=== PATIENT | male | born 1955 | race Caucasian/White ===

== ENCOUNTER 2016-07-05 17:45 | Inpatient (IN) | payer BC ==
[~2016-07-05] VITALS: Ht 177.8 cm; Wt 124.0 kg
[~2016-07-05 17:45] MED LIST: ATENOLOL50 MG PO; ATIVAN0.5 MG PO; ATORVASTATIN CA10 MG PO; BUSPAR10 MG PO; CLARITIN10 M3 PO; COZAAR50 MG PO; CYMBALTA30 MG PO; DOXEPIN HCL10 MG PO; FENOFIBRATE160 M1 PO; FISH OIL300 MG PO; FLEXERIL10 MG PO; GELNIQUE 10%30 GM TD; LIDODERM 5% P1 PATCH TD; LIPITOR10 MG PO; LORAZEPAM0.5 MG PO; LOSARTAN POTASS50 MG PO; LUNESTA1 MG PO; LUNESTA3 MG PO; MONTELUKAST SOD10 MG PO; NAPROSYN500 MG PO; NASACORT AQ16.5 GM BOTH NARES; NICOTINE PATCH1 EAC2 TD; NUVIGIL150 MG PO; OXYCODONE HCL15 MG PO; OXYCONTIN60 MG PO; PERCOCET 5/31 TABLET PO; PRADAXA150 MG PO; PREDNISONE50 MG PO; PRILOSEC OTC20 MG PO; PRILOSEC20 MG PO; ROXICODONE15 MG PO; SENNA-DOCUSATE1 EAC1 PO; SINGULAIR10 MG PO; SPIRIVA1 INHALATI IH; URSODIOL500 MG PO; VALIUM5 MG PO; VIAGRA100 MG PO; VIAGRA50 MG PO; VITAMIN E400 UNIT PO; XANAX0.5 MG PO
[2016-07-05 18:55] LABS: HEMATOCRIT 15.1 % (38.0-50.0); MCH 33.6 PG (29.0-34.0); MCHC 31.8 G/DL (30.0-36.0); MCV 105.6 FL (86-99); MEAN PLAT.VOLUME 13.3 uM^3 (9.0-12.4); NRBC (%) 0.9 /100 WBC (0-0); PLATELET COUNT 53 K/uL (156-360); RBC DIS.WIDTH-CV 21.5 % (11.8-14.6); RBC DIS.WIDTH-SD 80.6 % (39-53); RED BLOOD COUNT 1.43 M/uL (4.00-5.50); WHITE BLOOD COUNT 2.3 K/uL (4.1-10.2)
[2016-07-05 19:10] LABS: TROP-I INTERPRETATION NEGATIVE; TROPONIN-I 0.01 ng/mL (0.0-0.30)
[2016-07-05 19:23] LABS: CHLORIDE 109 mEq/L (99-109); POTASSIUM 4.1 mEq/L (3.7-5.4); SODIUM 140 mEq/L (136-147)
[2016-07-05 19:25] LABS: GLUCOSE 108 mg/dL (70-99)
[2016-07-05 19:26] LABS: ANION GAP 10 MEQ/L (2-14)
[2016-07-05 19:29] LABS: GFR ESTIMATE (CALCULATED) 29 mL/min/; UREA NITROGEN (BUN) 33 mg/dL (9-23)
[2016-07-05 19:39] LABS: TOTAL BILIRUBIN 0.7 mg/dL (0.0-1.0)
[2016-07-05 19:40] LABS: ALKALINE PHOSPHATASE 41 IU/L (3-129)
[2016-07-05 19:43] LABS: DIRECT BILIRUBIN 0.5 mg/dL (0.0-0.3)
[2016-07-05 19:44] LABS: LIPASE 72 U/L (1.0-51.0)
[2016-07-05] MEDS ORDERED: COZAAR50 MG PO (20:13)
[2016-07-05] MEDS ORDERED: LANSOPRAZOLE30 MG PO (20:14)
[2016-07-05] MEDS ORDERED: ELIQUIS5 MG PO (20:16)
[2016-07-05] MEDS ORDERED: MOVANTIK25 MG PO (20:19)
[2016-07-05] MEDS ORDERED: OXAYDO7.5 MG PO (20:20)
[2016-07-05] MEDS ORDERED: FUROSEMIDE40 MG PO (20:21)
[2016-07-05] MEDS ORDERED: DIGITEK250 MC2 PO (20:22)
[2016-07-05] MEDS ORDERED: SPIRIVA RESPIMAT4 GM IH (20:27)
[2016-07-05] MEDS ORDERED: KRILL OIL 1,001 EACH PO (20:28)
[2016-07-05] MEDS ORDERED: ERGOCALCIF50000 UNIT PO (20:29)
[2016-07-05 21:13] VITALS: BP 115/48
[2016-07-05 21:28] VITALS: BP 106/46
[2016-07-05 22:10] VITALS: BP 110/47
[2016-07-06] VITALS (13 sets, daily range): BP systolic 105–134; BP diastolic 51–63
[2016-07-06 07:07] LABS: HEMATOCRIT 19.4 % (38.0-50.0); IMM.PLATELET FRACTION 27.2 (1-7); MCH 32.5 PG (29.0-34.0); MEAN PLAT.VOLUME 12.9 uM^3 (9.0-12.4); PLATELET COUNT 53 K/uL (156-360); RBC DIS.WIDTH-CV 21.8 % (11.8-14.6); RBC DIS.WIDTH-SD 76.1 % (39-53); WHITE BLOOD COUNT 2.4 K/uL (4.1-10.2)
[2016-07-06 07:11] LABS: TROP-I INTERPRETATION NEGATIVE; TROPONIN-I 0.02 ng/mL (0.0-0.30)
[2016-07-06 07:19] LABS: IRON 242 MCG/DL (35-150)
[2016-07-06 07:23] LABS: MCV 101.6 FL (86-99); RED BLOOD COUNT 1.91 M/uL (4.00-5.50)
[2016-07-06 07:58] LABS: FERRITIN 1161 NG/ML (22-322)
[2016-07-06 10:30] LABS: HEMATOCRIT 19.5 % (38.0-50.0); IMM.PLATELET FRACTION 25.5 (1-7); MCH 32.1 PG (29.0-34.0); MCHC 31.8 G/DL (30.0-36.0); MEAN PLAT.VOLUME 12.8 uM^3 (9.0-12.4); PLATELET COUNT 55 K/uL (156-360); RBC DIS.WIDTH-CV 21.7 % (11.8-14.6); RBC DIS.WIDTH-SD 76.2 % (39-53); RED BLOOD COUNT 1.93 M/uL (4.00-5.50); WHITE BLOOD COUNT 3.1 K/uL (4.1-10.2)
[2016-07-06 10:31] LABS: INTER. NORMALIZED RATIO 1.3; PROTHROMBIN TIME 13.4 (9.2-11.2); PTT 30.5 (25-32)
[2016-07-06 10:50] LABS: ABS NEUTROPHIL COUNT 2.4; ANISOCYTOSIS 1+; ATYPICAL LYMPHOCYTE 0.9 %; BAND NEUTROPHILS 4.6 % (0-8.0); BASOPHILS 1.8 %; EOSINOPHIL ABS CT 0; EOSINOPHILS 0.9 % (0-5.0); GIANT PLATELETS 1+; LYMPHOCYTES 16.4 % (15.0-45.0); MACROCYTES 1+; NUCLEATED RBC'S 1.8; PLAT.SUFFICIENCY DECREASED; POIKILOCYTOSIS 1+; SEG.NEUTROPHILS 73.6 % (46.0-76.0); TEAR DROP CELLS 1+
[2016-07-06 13:23] LABS: TROP-I INTERPRETATION NEGATIVE; TROPONIN-I 0.02 ng/mL (0.0-0.30)
[2016-07-06 20:33] LABS: HEMATOCRIT 21.6 % (38.0-50.0); MCH 31.9 PG (29.0-34.0); MCHC 31.9 G/DL (30.0-36.0); MEAN PLAT.VOLUME 13.6 uM^3 (9.0-12.4); NRBC (%) 0.8 /100 WBC (0-0); PLATELET COUNT 60 K/uL (156-360); RBC DIS.WIDTH-CV 20.6 % (11.8-14.6); RBC DIS.WIDTH-SD 71.7 % (39-53); RED BLOOD COUNT 2.16 M/uL (4.00-5.50); WHITE BLOOD COUNT 3.8 K/uL (4.1-10.2)
[2016-07-06 21:12] LABS: POINT-OF-CARE METER ID UU13113725
[2016-07-07] VITALS (9 sets, daily range): BP systolic 114–176; BP diastolic 53–73
[2016-07-07 00:05] LABS: POINT-OF-CARE METER ID UU13113725
[2016-07-07 05:55] LABS: POINT-OF-CARE METER ID UU13113725
[2016-07-07 07:50] LABS: HEMATOCRIT 20.9 % (38.0-50.0); MCH 32.4 PG (29.0-34.0); MCHC 32.1 G/DL (30.0-36.0); NRBC (%) 0.9 /100 WBC (0-0); PLATELET COUNT 51 K/uL (156-360); RBC DIS.WIDTH-CV 20.4 % (11.8-14.6); RBC DIS.WIDTH-SD 72.2 % (39-53); RED BLOOD COUNT 2.07 M/uL (4.00-5.50)
[2016-07-07 07:51] LABS: WHITE BLOOD COUNT 2.2 K/uL (4.1-10.2)
[2016-07-07 08:02] LABS: ALKALINE PHOSPHATASE 41 IU/L (3-129); ANION GAP 7 MEQ/L (2-14); CHLORIDE 106 MEQ/L (99-109); Estimated Average Glucose 108 mg/dL (70-123); GFR ESTIMATE (CALCULATED) 38 mL/min/; GLUCOSE 92 mg/dL (70-99); HEMOGLOBIN A1c (GLYCOHEMOGLOB) 5.4 % HGB (Below 5.7); POTASSIUM 3.8 MEQ/L (3.7-5.4); SAMPLE HEMOLYSIS CHECK 0; SAMPLE ICTERIC CHECK 0; SAMPLE LIPEMIA CHECK 0; SODIUM 141 MEQ/L (136-147); TOTAL BILIRUBIN 1.2 MG/DL (0.0-1.0); UREA NITROGEN (BUN) 22 mg/dL (9-23)
[2016-07-07 11:18] LABS: POINT-OF-CARE METER ID UU13113725
[2016-07-07 11:35] LABS: ABS NEUTROPHIL COUNT 1.4; ANISOCYTOSIS 1+; BURR CELLS 1+; EOSINOPHIL ABS CT 0; HYPOCHROMASIA 1+; MACROCYTES 1+; PLAT.SUFFICIENCY DECREASED
[2016-07-07 21:00] LABS: HEMATOCRIT 18.8 % (38.0-50.0); HEMATOLOGY COMMENT 1 SN; IMM.PLATELET FRACTION 21.1 (1-7); MCH 32.4 PG (29.0-34.0); MCHC 31.9 G/DL (30.0-36.0); MCV 101.6 FL (86-99); MEAN PLAT.VOLUME 13.3 uM^3 (9.0-12.4); PLAT.SUFFICIENCY DECREASED; PLATELET COUNT 59 K/uL (156-360); RBC DIS.WIDTH-CV 20.4 % (11.8-14.6); RBC DIS.WIDTH-SD 72.3 % (39-53); RED BLOOD COUNT 1.85 M/uL (4.00-5.50)
[2016-07-08] VITALS (11 sets, daily range): BP systolic 122–166; BP diastolic 63–83
[2016-07-08 06:16] LABS: HEMATOCRIT 23.6 % (38.0-50.0); MCH 31.8 PG (29.0-34.0); MCHC 32.2 G/DL (30.0-36.0); MCV 98.7 FL (86-99); NRBC (%) 1.8 /100 WBC (0-0); RBC DIS.WIDTH-SD 68.4 % (39-53); WHITE BLOOD COUNT 2.2 K/uL (4.1-10.2)
[2016-07-08 06:20] LABS: RED BLOOD COUNT 2.39 M/uL (4.00-5.50)
[2016-07-08 06:53] LABS: ANION GAP 9 MEQ/L (2-14); CHLORIDE 106 MEQ/L (99-109); GFR ESTIMATE (CALCULATED) 43 mL/min/; GLUCOSE 86 mg/dL (70-99); SAMPLE HEMOLYSIS CHECK 0; SAMPLE ICTERIC CHECK 0; SAMPLE LIPEMIA CHECK 0; SODIUM 141 MEQ/L (136-147); UREA NITROGEN (BUN) 20 mg/dL (9-23)
[2016-07-08 06:54] LABS: POTASSIUM 4.8 MEQ/L (3.7-5.4)
[2016-07-08 07:12] LABS: IMM.PLATELET FRACTION 19.6 (1-7); MEAN PLAT.VOLUME 11.9 uM^3 (9.0-12.4); PLATELET COUNT 48 K/uL (156-360)
[2016-07-08 07:14] LABS: PLAT.SUFFICIENCY VERY DECREASED
[2016-07-08 08:38] LABS: LACTATE DEHYDROGENASE 225 IU/L (20-246)
[2016-07-08 20:28] LABS: HEMATOCRIT 23.6 % (38.0-50.0); MCHC 32.6 G/DL (30.0-36.0); MCV 97.9 FL (86-99); NRBC (%) 1.2 /100 WBC (0-0); RBC DIS.WIDTH-CV 19.7 % (11.8-14.6); RBC DIS.WIDTH-SD 68.3 % (39-53); RED BLOOD COUNT 2.41 M/uL (4.00-5.50); WHITE BLOOD COUNT 2.5 K/uL (4.1-10.2)
[2016-07-08 22:21] LABS: IMM.PLATELET FRACTION 24.8 (1-7); PLAT.SUFFICIENCY VERY DECREASED; PLATELET COUNT 48 K/uL (156-360)
[2016-07-09 03:24] VITALS: BP 148/82; BP 183/86
[2016-07-09 06:42] VITALS: BP 143/65
[2016-07-09 08:13] LABS: HEMATOCRIT 22.4 % (38.0-50.0); MCH 31.7 PG (29.0-34.0); MCHC 32.1 G/DL (30.0-36.0); MCV 98.7 FL (86-99); NRBC (%) 1.5 /100 WBC (0-0); RBC DIS.WIDTH-CV 19.6 % (11.8-14.6); RED BLOOD COUNT 2.27 M/uL (4.00-5.50); WHITE BLOOD COUNT 2.1 K/uL (4.1-10.2)
[2016-07-09 08:50] LABS: ANION GAP 7 MEQ/L (2-14); CHLORIDE 106 MEQ/L (99-109); GFR ESTIMATE (CALCULATED) 50 mL/min/; GLUCOSE 83 mg/dL (70-99); SAMPLE HEMOLYSIS CHECK 0; SAMPLE ICTERIC CHECK 0; SAMPLE LIPEMIA CHECK 0; SODIUM 140 MEQ/L (136-147); UREA NITROGEN (BUN) 17 mg/dL (9-23)
[2016-07-09 09:10] LABS: POTASSIUM 3.8 MEQ/L (3.7-5.4)
[2016-07-09 09:33] LABS: PLAT.SUFFICIENCY DECREASED; PLATELET COUNT 48 K/uL (156-360)
[2016-07-09 09:45] LABS: DIRECT BILIRUBIN 0.9 mg/dL (0.0-0.3)
[2016-07-09 09:46] LABS: TOTAL BILIRUBIN 1.9 MG/DL (0.0-1.0)
[2016-07-09 11:46] VITALS: BP 130/58
[2016-07-09 15:03] VITALS: BP 132/59
[2016-07-09 17:13] LABS: Flow Number of Markers 22 (()); Flow Spec Viability 96 % (()); Flow Specimen Type BONE MARROW (())
[2016-07-09 18:47] VITALS: BP 131/63
[2016-07-09 20:53] LABS: HEMATOLOGY COMMENT 1 SN; PLAT.SUFFICIENCY DECREASED
[2016-07-09 20:54] LABS: HEMATOCRIT 22.2 % (38.0-50.0); IMM.PLATELET FRACTION 20.4 (1-7); MCH 31.6 PG (29.0-34.0); MCV 98.7 FL (86-99); NRBC (%) 1.1 /100 WBC (0-0); PLATELET COUNT 52 K/uL (156-360); RBC DIS.WIDTH-CV 19.5 % (11.8-14.6); RBC DIS.WIDTH-SD 66.9 % (39-53); RED BLOOD COUNT 2.25 M/uL (4.00-5.50)
[2016-07-09 20:56] LABS: MEAN PLAT.VOLUME 11.4 uM^3 (9.0-12.4); WHITE BLOOD COUNT 1.9 K/uL (4.1-10.2)
[2016-07-10 03:41] VITALS: BP 148/67
[2016-07-10 06:28] LABS: HEMATOCRIT 22.6 % (38.0-50.0); MCH 31.7 PG (29.0-34.0); MCHC 32.3 G/DL (30.0-36.0); MCV 98.3 FL (86-99); MEAN PLAT.VOLUME 12.3 uM^3 (9.0-12.4); NRBC (%) 4.8 /100 WBC (0-0); PLATELET COUNT 52 K/uL (156-360); RBC DIS.WIDTH-CV 19.5 % (11.8-14.6); RBC DIS.WIDTH-SD 66.7 % (39-53); WHITE BLOOD COUNT 2.1 K/uL (4.1-10.2)
[2016-07-10 06:52] LABS: ALKALINE PHOSPHATASE 43 IU/L (3-129); ANION GAP 7 MEQ/L (2-14); CHLORIDE 107 MEQ/L (99-109); GFR ESTIMATE (CALCULATED) 47 mL/min/; POTASSIUM 4.3 MEQ/L (3.7-5.4); SAMPLE HEMOLYSIS CHECK 0; SAMPLE ICTERIC CHECK 0; SAMPLE LIPEMIA CHECK 0; SODIUM 139 MEQ/L (136-147); TOTAL BILIRUBIN 1.6 MG/DL (0.0-1.0); UREA NITROGEN (BUN) 19 mg/dL (9-23)
[2016-07-10 06:59] LABS: GLUCOSE 117 mg/dL (70-99)
[2016-07-10] MEDS ORDERED: DIGOXIN125 MCG PO (08:03)
[2016-07-10 08:09] VITALS: BP 154/84
== END 2016-07-10 09:43 | disposition home or self-care (01) | DRG 809 ==
LOC: EME 17:45 → 5EAST 23:46 → EDOF 23:46 → 5EAST 07-06 00:30
PROVIDERS: Anesthesiology; Hospitalist; Internal Medicine
PROC: 30233N1 Transfusion of Nonautologous Red Blood Cells into Peripheral Vein, Percutaneous Approach (ICD-10-PCS; 2016-07-05)
PROC: 0CJY8ZZ Inspection of Mouth and Throat, Via Natural or Artificial Opening Endoscopic (ICD-10-PCS; principal; 2016-07-06)
DX: D61.818 Other pancytopenia (principal); J44.9 Chronic obstructive pulmonary disease, unspecified; N17.9 Acute kidney failure, unspecified; I48.2 Chronic atrial fibrillation; Z79.01 Long term (current) use of anticoagulants; R04.0 Epistaxis; F17.210 Nicotine dependence, cigarettes, uncomplicated; R06.02 Shortness of breath; E66.01 Morbid (severe) obesity due to excess calories; Z68.39 Body mass index [BMI] 39.0-39.9, adult; Z86.73 Personal history of transient ischemic attack (TIA), and cerebral infarction without residual deficits; G47.33 Obstructive sleep apnea (adult) (pediatric); M06.9 Rheumatoid arthritis, unspecified; F41.9 Anxiety disorder, unspecified; M79.7 Fibromyalgia; I12.9 Hypertensive chronic kidney disease with stage 1 through stage 4 chronic kidney disease, or unspecified chronic kidney disease; N18.3 Chronic kidney disease, stage 3 (moderate); R09.02 Hypoxemia; K92.2 Gastrointestinal hemorrhage, unspecified; K76.0 Fatty (change of) liver, not elsewhere classified; R60.0 Localized edema
CPT/HCPCS: 71020; 76705; 77012; 80048; 80053; 80076; 82247; 82248; 82607; 82668 90; 82728; 82746; 82948; 83036; 83540; 83615; 83690; 84466; 84484; 85007; 85014; 85018; 85025; 85027; 85060; 85610; 85730; 85999; 86880; 86900; 86901; 86920; 88184 90; 88185 90; 88189 90; 93005; 93306; 94640; 94640 76; 94799; 99281; 99285; C9113; J1815; J1940; J3010; J7030; P9016